=== PATIENT | male | born 1990 | race Caucasian/White ===

== ENCOUNTER 2017-03-10 23:52 | Emergency (ER) | payer OTHER ==
[~2017-03-10] VITALS: Ht 188 cm; Wt 93.5 kg
[2017-03-10 23:57] VITALS: BP 122/68; PULSE 55; TEMP 36.6; O2SAT 97; Ht 188 cm; Wt 93.5 kg
[2017-03-11] MEDS ORDERED: AMPH10TA2 PO (00:24)
--- NOTE | 2017-03-11 01:05 | EMERGENCY ROOM VISIT NOTE ---
ED Visit Note First contact with patient: 00:11 Chief Complaint: Broken Pinkie Toe on RIGHT Foot History of Present Illness: Patient is a 26-year-old male who presents to the emergency department today for evaluation of possible broken LEFT little toe. He reports that he accidentally struck his toe against the door jam at his house. The toe spread resulted in immediate pain and deformity to the affected toe. The patient rates his current discomfort is 7/10. He denies any previous injury or fracture to the affected area. He rates his current discomfort as a 7 /10. He is tried nothing for his symptoms to this point. He denies any associated foot pain, ankle pain, or lower leg pain. Medications: No current medications. Allergies: No known allergies. PMH: No pertinent past medical history. SHx: Patient is a 26-year-old male who lives locally. ROS: All pertinent positive and negative review of systems are appropriately documented in the History of Present Illness. Physical Exam: VITAL SIGNS - Vital signs and nursing notes were reviewed. GENERAL - 26-year-old male appearing his stated age and in noticeable discomfort throughout the exam. MUSCULOSKELETAL - Mild lateral angulation noted to the LEFT little toe. No ecchymosis or lacerations noted. Moderate tenderness to palpation appreciated to the proximal toe. Active ROM of the LEFT 5ht toe was limited in all directions. No palpable deformities. No tenderness over the MTP joint. No tenderness extending into the tarsals. NEUROLOGIC - SENSORY: Spinothalamic tract was found to be intact with ability to discriminate sharp versus dull sensation at the level of the RIGHT ankle down to the tips of the toes. No sensory deficits of the dorsal column were appreciated utilizing light touch for evaluation. VASCULAR - Capillary refill was brisk. +3/5 radial pulse palpated. IMAGING: RIGHT FIFTH TOE 3 VIEWS CLINICAL HISTORY: Fifth toe injury. FINDINGS: 3 views of the right fifth toe are obtained. No prior studies are available for comparison at the time of dictation. The skeletal structures are well mineralized. There is a minimally distracted spiral fracture through the midshaft of the fifth proximal phalanx. No intra-articular extension is seen. No additional fracture is identified. The fifth metatarsophalangeal and interphalangeal joints appear preserved. Mild overlying soft tissue edema is noted. IMPRESSION: There is a minimally distracted spiral fracture through the midshaft of the fifth proximal phalanx. ED Course: Patient was seen and evaluated by myself. X-ray of the affected toe was obtained. Imaging results as above. Imaging results reviewed with the patient who acknowledges understanding. Toe was amy taped for comfort. He declines postop shoe. He was encouraged to amy tape the toe. The next 2 weeks. He was educated on worrisome symptoms for return visit to the emergency department. Patient discharged home in good condition. In the evaluation and treatment of this patient, the following differential diagnoses were considered: Toe Fracture, Toe Sprain, Turf Toe, Gout. Impression: RIGHT 5th Toe Discharge Instructions: You have been seen in the emergency department today for fracture of the RIGHT fifth toe. Please amy tape the toe for comfort. For pain control, you can use the following axac-yww-srtfdig medicines (if >12 yo): - Regular strength (325mg/tab) Tylenol (acetaminophen) 2 tabs every 4-6 hours as needed. Do not exceed 12 tablets in a 24 hour period. Avoid taking more than 4 grams (4000 mg) of Tylenol per day. This includes any other sources of acetaminophen you may take on a regular basis. - Regular strength (200 mg/tab) Advil (ibuprofen) 1-2 tabs every 4-6 hours as needed. Do not exceed a dose of 3200 mg per day. Return for any changing or worsening symptoms. Current/Historical Medications Scheduled Amphetamine-Dextroamphetamine 10MG (Adderall 10MG), 10 MG PO TID Allergies Coded Allergies: No Known Allergies (Unverified , 03/11/17) Vital Signs Date Time Temp Pulse Resp B/P Pulse Ox O2 Delivery O2 Flow Rate FiO2 03/10/17 23:57 36.6 55 18 122/68 97 Room Air Departure Information Impression Primary Impression: Toe fracture, right Dispostion Home / Self-Care Condition GOOD Referrals No Doctor, Assigned (PCP) Patient Instructions ED Fx Toe Closed, My [facility] [employer] Additional Instructions You have been seen in the emergency department today for fracture of the RIGHT fifth toe. Please amy tape the toe for comfort. For pain control, you can use the following tjzk-emo-esghdvo medicines (if >12 yo): - Regular strength (325mg/tab) Tylenol (acetaminophen) 2 tabs every 4-6 hours as needed. Do not exceed 12 tablets in a 24 hour period. Avoid taking more than 4 grams (4000 mg) of Tylenol per day. This includes any other sources of acetaminophen you may take on a regular basis. - Regular strength (200 mg/tab) Advil (ibuprofen) 1-2 tabs every 4-6 hours as needed. Do not exceed a dose of 3200 mg per day. Return for any changing or worsening symptoms. Problem Qualifiers Primary Impression: Toe fracture, right Encounter type: initial encounter Toe: lesser toe Fracture type: closed Phalanx: proximal Fracture alignment: nondisplaced Qualified Codes: S92.514A - Nondisplaced fracture of proximal phalanx of right lesser toe(s), initial encounter for closed fracture
--- NOTE | 2017-03-11 07:26 | DIAGNOSTIC IMAGING REPORT ---
RIGHT FIFTH TOE 3 VIEWS CLINICAL HISTORY: Fifth toe injury. FINDINGS: 3 views of the right fifth toe are obtained. No prior studies are available for comparison at the time of dictation. The skeletal structures are well mineralized. There is a minimally distracted spiral fracture through the midshaft of the fifth proximal phalanx. No intra-articular extension is seen. No additional fracture is identified. The fifth metatarsophalangeal and interphalangeal joints appear preserved. Mild overlying soft tissue edema is noted. IMPRESSION: There is a minimally distracted spiral fracture through the midshaft of the fifth proximal phalanx. Electronically signed by: Nazario Jerez M.D. 03/11/2017 7:24 AM Dictated Date/Time: 03/11/2017 7:23 AM
== END 2017-03-11 01:11 | disposition home or self-care (01) ==
LOC: C.EDB 23:54 → C.EDC 03-11 01:11
DX: S92.514A Nondisplaced fracture of proximal phalanx of right lesser toe(s), initial encounter for closed fracture (principal); W22.8XXA Striking against or struck by other objects, initial encounter; Y92.89 Other specified places as the place of occurrence of the external cause